=== PATIENT | male | born 1945 | race Asian ===

== ENCOUNTER 2016-10-24 09:01 | Day surgery (SDC) | payer OTHER, MEDICAID ==
[~2016-10-24] VITALS: Ht 165.1 cm; Wt 78.9 kg
[2016-10-24 09:34] VITALS: BP 132/67
[2016-10-24 14:26] VITALS: BP 134/78
== END 2016-10-24 14:15 | disposition home or self-care (01) ==
LOC: DS 09:01 → OR 10:30 → DS 14:15
PROVIDERS: Neuromusculoskeletal Medicine, Sports Medicine
PROC: 3E0T3BZ Introduction of Anesthetic Agent into Peripheral Nerves and Plexi, Percutaneous Approach (ICD-10-PCS; 2016-10-24)
PROC: 0LN70ZZ Release Right Hand Tendon, Open Approach (ICD-10-PCS; principal; 2016-10-24 10:30)
DX: M65.331 Trigger finger, right middle finger (principal)
CPT/HCPCS: J0690; J2001; J2250; J2704; J3010; J3490; J7120; Q0092